=== PATIENT | female | born 1965 | race Caucasian/White ===

== ENCOUNTER → 2016-10-15 | Outpatient (CLI) | payer BC ==
--- NOTE | 2016-10-15 15:39 | RADRPT ---
PROCEDURE: Whole body bone scan study CLINICAL INDICATION: 50 -year-old patient with left rib cage pain, status post fall. TECHNIQUE: Following the intravenous injection of 24.8 mCi of Tc-99m MDP, whole body anterior and posterior planar images were obtained along with spot views of the chest. COMPARISON: No prior bone scans are available for comparison. FINDINGS: There is a suggestion of a small focus of low level uptake in the left approximately 6th costochondr al junction, best appreciated on the left lateral view. No definite abnormal areas of increased activity or asymmetries are visualized in the study and dist ribution of radionuclide is homogeneous in the skull, spine, rib cages, sternum, pelvis and visualiz ed portions of the upper and lower extremities. Of incidental note, there is no evidence of mass abnormalities of the kidneys. IMPRESSION: 1. Suggestion of a small focus of low level uptake in the left approximately 6th costochondral junc tion likely post-traumatic in nature. 2. No other skeletal abnormalities. RPTAT: HH .Bruna Doran MD, MD Date Time Electronically viewed and signed by .Bruna Doran MD, on 10/15/2016 15:38 .L/
== END | disposition home or self-care (01) ==
LOC: NUC 08:43
PROVIDERS: ATTEND Physical Medicine & Rehabilitation Sports Medicine
DX: R07.81 Pleurodynia (principal)
CPT/HCPCS: 78306; A9503

== ENCOUNTER → 2017-11-28 | Emergency (ER) | END | disposition home or self-care (01) ==